=== PATIENT | male | born 1945 | race Caucasian/White ===

== ENCOUNTER 2020-04-18 15:40 | Observation (INO) ==
[2020-04-18 16:29] LABS: Eosinophils % 0.5 %; Hematocrit 42.1 % (37.5-50.1); Hemoglobin 14.6 g/dL (12.9-16.9); Immature Granulocytes % 0.7 % (0-4); Lymphocytes # 0.6 K/mcL (0.6-4.6); Lymphocytes % 14.3 %; Mean Corpuscular HGB Conc 34.7 g/dL (31.6-35.5); Mean Corpuscular Volume 95.2 fL (83.0-100.0); Mean Platelet Volume 9.4 fL (9.4-12.4); Monocytes # 0.3 K/mcL (0.0-1.3); Neutrophils # 3.3 K/mcL (1.6-8.9); Platelet Count 220 K/mcL (140-400); Red Blood Count 4.42 M/mcL (4.19-5.50); Red Cell Distribution Width 12.4 % (11.5-14.5); Segmented Neutrophils % 77.5 %; White Blood Count 4.3 K/mcL (4.3-11.1)
[2020-04-18 16:41] LABS: INR 1.1; Prothrombin Time 12.9 Seconds (9.4-12.1)
[2020-04-18 17:01] LABS: Calcium 8.7 mg/dL (8.6-10.3); Magnesium 1.5 mg/dL (1.6-2.6); Potassium 3.7 mEq/L (3.5-5.1)
[2020-04-18] MEDS ORDERED: Isovue-370 500 ML BOTTLE IVP ONE (17:23)
[2020-04-18] MEDS ORDERED: Azithromycin 500 MG in D5% in Water 250 ML IVPB ONE (17:24)
[2020-04-18] MEDS ORDERED: Dexamethasone 4 MG/ML VIAL IVP ONE (17:24)
[2020-04-18] MEDS ORDERED: Ondansetron 4 MG/2 ML VIAL IVP PRN (17:52)
[2020-04-18] MEDS ORDERED: Naloxone 0.4 MG/ML INJ IVP PRN (17:52)
[2020-04-18] MEDS ORDERED: Acetaminophen 325 MG TABLET PO PRN (17:52)
[2020-04-18] MEDS ORDERED: 0.9 % Sodium Chloride 1,000 ML IVC SCH (18:00)
[2020-04-18] MEDS ORDERED: Dextrose Gel 15 GM/37.5 ML TUBE PO PRN ×2 (18:22)
[2020-04-18] MEDS ORDERED: D5% in Water 1,000 ML IVC PRN (18:22)
[2020-04-18] MEDS ORDERED: *HR* Dextrose 50 % in Water (Vial) 50 ML VIAL IVP PRN (18:22)
[2020-04-18] MEDS: carvediloL 6.25 MG TABLET PO SCH (20:08)
[2020-04-18] MEDS: cefTRIAXone 2,000 MG in Water for inj. (sterile) 20 ML IVP SCH (21:56)
[2020-04-19] MEDS: *HR* Enoxaparin 40 MG/0.4 ML SYRINGE SQ SCH (05:27)
[2020-04-19 06:11] LABS: Hemoglobin 13.2 g/dL (12.9-16.9); Immature Granulocytes % 0.4 % (0-4); Lymphocytes % 13.3 %; Mean Corpuscular HGB Conc 34.7 g/dL (31.6-35.5); Mean Corpuscular Hemoglobin 32.7 pg (28.0-33.3); Mean Corpuscular Volume 94.1 fL (83.0-100.0); Mean Platelet Volume 9.5 fL (9.4-12.4); Monocytes # 0.1 K/mcL (0.0-1.3); Monocytes % 3.1 %; Platelet Count 194 K/mcL (140-400); Red Blood Count 4.04 M/mcL (4.19-5.50); Red Cell Distribution Width 12.2 % (11.5-14.5); Segmented Neutrophils % 83.2 %; White Blood Count 2.6 K/mcL (4.3-11.1)
[2020-04-19 06:14] LABS: Lymphocytes # 0.4 K/mcL (0.6-4.6); Neutrophils # 2.2 K/mcL (1.6-8.9)
[2020-04-19 06:30] LABS: BUN/Creatinine Ratio 22 (6-26); Blood Urea Nitrogen 31 mg/dL (8-23); Calcium 8.2 mg/dL (8.6-10.3); Carbon Dioxide 24 mEq/L (23-29); Chloride 94 mEq/L (98-107); Glucose 260 mg/dL (70-105); Osmolality,Calculated 282 (280-300); Potassium 3.6 mEq/L (3.5-5.1); Sodium 128 mEq/L (136-145); Troponin I < 0.03 ng/mL (< 0.04); eGFR For African Americans 59 (> 60); eGFR For Non-African Americans 49 (> 60)
[2020-04-19] MEDS: carvediloL 6.25 MG TABLET PO SCH ×2 (08:16→19:05)
[2020-04-19] MEDS: Dexamethasone 4 MG/ML VIAL IVP SCH (08:17)
[2020-04-19] MEDS: Insulin LISPRO 300 UNITS/3 ML VIAL SUBQ SCH ×3 (08:19→18:47)
[2020-04-19 08:47] LABS: Lactate Dehydrogenase 166 Units/L (140-271)
[2020-04-19] MEDS ORDERED: NIFEdipine XL (24 HR) 60 MG TAB.ER.24 PO SCH (09:00)
[2020-04-19 09:35] LABS: Ferritin 302 ng/mL (20-250)
[2020-04-19] MEDS: NIFEdipine XL (24 HR) 30 MG TAB.ER.24 PO SCH (12:51)
[2020-04-19] MEDS ORDERED: Azithromycin 500 MG in 0.9 % Sodium Chloride 250 ML IVPB SCH (18:00)
[2020-04-19] MEDS: cefTRIAXone 2,000 MG in Water for inj. (sterile) 20 ML IVP SCH (19:07)
[2020-04-19] MEDS ORDERED: Insulin LISPRO 300 UNITS/3 ML VIAL SUBQ SCH (21:00)
[2020-04-20] MEDS: *HR* Enoxaparin 40 MG/0.4 ML SYRINGE SQ SCH (05:06)
[2020-04-20 06:23] LABS: Hematocrit 37.2 % (37.5-50.1); Mean Corpuscular HGB Conc 34.9 g/dL (31.6-35.5); Mean Corpuscular Hemoglobin 32.9 pg (28.0-33.3); Mean Corpuscular Volume 94.2 fL (83.0-100.0); Mean Platelet Volume 9.7 fL (9.4-12.4); Platelet Count 233 K/mcL (140-400); Red Blood Count 3.95 M/mcL (4.19-5.50); Red Cell Distribution Width 11.9 % (11.5-14.5); White Blood Count 6.9 K/mcL (4.3-11.1)
[2020-04-20 06:56] LABS: BUN/Creatinine Ratio 27 (6-26); Blood Urea Nitrogen 37 mg/dL (8-23); Calcium 8.3 mg/dL (8.6-10.3); Carbon Dioxide 24 mEq/L (23-29); Chloride 98 mEq/L (98-107); Glucose 186 mg/dL (70-105); Osmolality,Calculated 290 (280-300); Potassium 3.7 mEq/L (3.5-5.1); Sodium 133 mEq/L (136-145); eGFR For African Americans > 60 (> 60); eGFR For Non-African Americans 51 (> 60)
[2020-04-20 08:00] VITALS: BP 110/68
[2020-04-20] MEDS: Dexamethasone 4 MG/ML VIAL IVP SCH (09:53)
[2020-04-20] MEDS: NIFEdipine XL (24 HR) 30 MG TAB.ER.24 PO SCH (09:54)
[2020-04-20] MEDS: carvediloL 6.25 MG TABLET PO SCH (09:54)
[2020-04-20] MEDS: Insulin LISPRO 300 UNITS/3 ML VIAL SUBQ SCH (09:54)
== END 2020-04-20 11:55 | disposition home or self-care (01) ==
LOC: EMEROOPIK 15:40 → INPPIK 15:40
PROVIDERS: ADMIT Family Medicine; ATTEND Family Medicine